=== PATIENT | female | born 1935 | race African-American/Black ===

== ENCOUNTER 2017-12-03 22:35 | Inpatient (IN) | payer MEDICARE, OTHER ==
[~2017-12-03] VITALS: Ht 157.5 cm; Wt 59.9 kg
[~2017-12-03 22:35] MED LIST: ATOR40TA70 PO; CHOL500010 PO; CYPR4TAB43 PO; ESOM40CA PO; FERR-43 PO; GLIP5TAB12 PO; LOSA100T3 PO; METF-416 PO; NATE120T PO; OMEP40CA34 PO; SITA50TA3 PO
[2017-12-03] MEDS ORDERED: SODIUM CHLORIDE 0.9% 1,000 ML IV ONE (23:30)
[2017-12-04] VITALS (9 sets, daily range): BP systolic 98–119; BP diastolic 57–71
[2017-12-04 00:26] LABS: BASOPHILS % 0.5 % (0.0-2.0); EOSINOPHILS % 0.2 % (0.0-5.0); HEMATOCRIT. 35.5 % (36.0-48.0); HEMOGLOBIN. 11.2 g/dL (12.0-16.0); MEAN CORPUSCULAR HEMOGLOBIN 24.9 pg (28.0-32.0); MEAN CORPUSCULAR VOLUME 79.1 fL (81.0-99.0); MEAN PLATELET VOLUME 8.9 fl (7.4-10.4); MONOCYTES % 5.9 % (2.0-8.0); NEUTROPHILS % 82.4 % (40.0-76.0); PLATELET 280 x1000/uL (130-400); RED BLOOD CELL COUNT 4.48 mill/uL (4.2-5.4)
[2017-12-04 00:37] LABS: CHLORIDE 99 mEq/L (98-107)
[2017-12-04 00:46] LABS: PROTHROMBIN TIME 10.1 sec (9.1-11.1)
[2017-12-04] MEDS ORDERED: SODIUM CHLORIDE 0.9% 1,000 ML IV SCH (02:51)
[2017-12-04 03:31] LABS: BASOPHILS % 0.5 % (0.0-2.0); HEMATOCRIT. 26.1 % (36.0-48.0); HEMOGLOBIN. 8.6 g/dL (12.0-16.0); LYMPHOCYTES % 15.8 % (20.0-50.0); MEAN CORPUSCULAR HEMOGLOBIN 25.8 pg (28.0-32.0); MEAN PLATELET VOLUME 8.8 fl (7.4-10.4); MONOCYTES % 5.4 % (2.0-8.0); NEUTROPHILS % 78.3 % (40.0-76.0); PLATELET 241 x1000/uL (130-400); RED BLOOD CELL COUNT 3.35 mill/uL (4.2-5.4); RED CELL DISTRIBUTION WIDTH 15.8 % (11.6-14.6)
[2017-12-04] MEDS ORDERED: IOHEXOL-300 100 ML BOTTLE ONE (03:49)
[2017-12-04] MEDS ORDERED: DEXTROSE 50% WATER 50ML SYRINGE IV PRN (09:00)
[2017-12-04] MEDS ORDERED: MAGNESIUM/ALUMINUM HYDROXIDE/SIMETHICONE 30ML UDC PO PRN (09:15)
[2017-12-04] MEDS ORDERED: GUAIFENESIN 200MG/10ML SUGAR FREE UDC PO PRN (09:15)
[2017-12-04] MEDS ORDERED: HYDROCODONE/ACETAMINOPHEN 5/325MG TABLET PO PRN (09:15)
[2017-12-04] MEDS ORDERED: IPRATROPIUM/ALBUTEROL 0.5-3(2.5)MG/3ML NEB INH PRN (09:15)
[2017-12-04] MEDS ORDERED: DOCUSATE SODIUM 100MG CAPSULE PO PRN (09:15)
[2017-12-04] MEDS ORDERED: ACETAMINOPHEN 325MG TABLET PO PRN (09:15)
[2017-12-04] MEDS ORDERED: ONDANSETRON HCL 4MG/2ML INJ IV PRN (09:15)
[2017-12-04] MEDS ORDERED: NA PHOS,M-B/NA PHOS,DI-BA ENEMA 118ML PR PRN (09:15)
[2017-12-04] MEDS ORDERED: ACETAMINOPHEN 650MG SUPP PR PRN (09:15)
[2017-12-04] MEDS ORDERED: ACETAMINOPHEN 650MG/20.3ML UDC GT PRN (09:15)
[2017-12-04] MEDS: SODIUM CHLORIDE 0.45% 1,000 ML IV SCH (10:09)
[2017-12-04 10:41] LABS: BASOPHILS % 0.5 % (0.0-2.0); EOSINOPHILS % 0.1 % (0.0-5.0); HEMATOCRIT. 28.5 % (36.0-48.0); HEMOGLOBIN. 9.5 g/dL (12.0-16.0); LYMPHOCYTES % 19.9 % (20.0-50.0); MEAN CORPUSCULAR HEMOGLOBIN 26.6 pg (28.0-32.0); MEAN CORPUSCULAR VOLUME 79.9 fL (81.0-99.0); MEAN PLATELET VOLUME 8.7 fl (7.4-10.4); MONOCYTES % 8.3 % (2.0-8.0); NEUTROPHILS % 71.2 % (40.0-76.0); PLATELET 215 x1000/uL (130-400); RED BLOOD CELL COUNT 3.57 mill/uL (4.2-5.4); RED CELL DISTRIBUTION WIDTH 16.1 % (11.6-14.6)
[2017-12-04] MEDS: BLOOD SUGAR DIAGNOSTIC STRIP TEST SCH ×3 (12:40→21:54)
[2017-12-04] MEDS: INSULIN LISPRO 100 UNITS/ML SUBCUT SCH ×3 (13:12→21:52)
[2017-12-04] MEDS: SODIUM CHLORIDE 0.9% INJ 3ML FLUSH IVF SCH ×2 (14:00→21:54)
[2017-12-04 17:40] LABS: TOTAL IRON BINDING CAPACITY 203 ug/dL (250-450)
[2017-12-04 18:16] LABS: FOLIC ACID (FOLATE) SERUM 11.2 ng/mL (>5.38)
[2017-12-05] VITALS (11 sets, daily range): BP systolic 82–144; BP diastolic 55–85
[2017-12-05] MEDS: SODIUM CHLORIDE 0.45% 1,000 ML IV SCH ×2 (02:31→14:01)
[2017-12-05 05:38] LABS: BASOPHILS % 0.6 % (0.0-2.0); EOSINOPHILS % 1.4 % (0.0-5.0); HEMATOCRIT. 26.8 % (36.0-48.0); HEMOGLOBIN. 8.8 g/dL (12.0-16.0); MEAN CORPUSCULAR HEMOGLOBIN 26.3 pg (28.0-32.0); MEAN CORPUSCULAR VOLUME 80.4 fL (81.0-99.0); MEAN PLATELET VOLUME 8.9 fl (7.4-10.4); MONOCYTES % 6.2 % (2.0-8.0); NEUTROPHILS % 67.8 % (40.0-76.0); PLATELET 196 x1000/uL (130-400); RED BLOOD CELL COUNT 3.34 mill/uL (4.2-5.4); RED CELL DISTRIBUTION WIDTH 16.1 % (11.6-14.6)
[2017-12-05 06:51] LABS: CHLORIDE 108 mEq/L (98-107)
[2017-12-05 06:55] LABS: HDL CHOLESTEROL 35 mg/dL (40-59); LDL CHOLESTEROL 60 mg/dL (5-100)
[2017-12-05] MEDS: BLOOD SUGAR DIAGNOSTIC STRIP TEST SCH ×4 (07:30→21:48)
[2017-12-05] MEDS: INSULIN LISPRO 100 UNITS/ML SUBCUT SCH ×4 (09:00→22:19)
[2017-12-05 11:05] LABS: HEMOGLOBIN 8.2 g/dL (12.0-16.0)
[2017-12-05] MEDS: SODIUM CHLORIDE 0.9% INJ 3ML FLUSH IVF SCH ×2 (14:00→21:48)
[2017-12-05 17:22] LABS: HEMATOCRIT 26.5 % (36.0-48.0); HEMOGLOBIN 8.9 g/dL (12.0-16.0)
[2017-12-05] MEDS ORDERED: INSULIN REGULAR (HUMULIN R) 300UNITS/3ML SUBCUT ONE (22:45)
[2017-12-05] MEDS ORDERED: INSULIN LISPRO 100 UNITS/ML SUBCUT NR (23:00)
[2017-12-06] VITALS (20 sets, daily range): BP systolic 89–134; BP diastolic 56–90
[2017-12-06] MEDS ORDERED: DEXTROSE 50% WATER 50ML SYRINGE IV PRN ×2 (00:15)
[2017-12-06] MEDS: SODIUM CHLORIDE 0.45% 1,000 ML IV SCH ×2 (01:27→14:20)
[2017-12-06 06:06] LABS: BASOPHILS % 0.5 % (0.0-2.0); EOSINOPHILS % 3.3 % (0.0-5.0); HEMATOCRIT. 24.9 % (36.0-48.0); HEMOGLOBIN. 8.3 g/dL (12.0-16.0); LYMPHOCYTES % 30.5 % (20.0-50.0); MEAN CORPUSCULAR HEMOGLOBIN 26.6 pg (28.0-32.0); MEAN PLATELET VOLUME 8.7 fl (7.4-10.4); MONOCYTES % 7.6 % (2.0-8.0); NEUTROPHILS % 58.1 % (40.0-76.0); PLATELET 213 x1000/uL (130-400); RED BLOOD CELL COUNT 3.11 mill/uL (4.2-5.4); RED CELL DISTRIBUTION WIDTH 15.6 % (11.6-14.6)
[2017-12-06] MEDS: SODIUM CHLORIDE 0.9% INJ 3ML FLUSH IVF SCH ×3 (06:33→22:01)
[2017-12-06 06:39] LABS: CHLORIDE 110 mEq/L (98-107)
[2017-12-06] MEDS: BLOOD SUGAR DIAGNOSTIC STRIP TEST SCH ×4 (08:20→21:57)
[2017-12-06] MEDS: INSULIN LISPRO 100 UNITS/ML SUBCUT SCH ×4 (09:38→22:34)
[2017-12-06 19:08] LABS: HEMATOCRIT 23.3 % (36.0-48.0); HEMOGLOBIN 7.5 g/dL (12.0-16.0)
[2017-12-07] VITALS (31 sets, daily range): BP systolic 63–148; BP diastolic 41–92
[2017-12-07] MEDS: SODIUM CHLORIDE 0.45% 1,000 ML IV SCH (03:55)
[2017-12-07] MEDS: SODIUM CHLORIDE 0.9% INJ 3ML FLUSH IVF SCH ×3 (05:06→21:55)
[2017-12-07] MEDS: BLOOD SUGAR DIAGNOSTIC STRIP TEST SCH ×4 (08:14→21:55)
[2017-12-07] MEDS: INSULIN LISPRO 100 UNITS/ML SUBCUT SCH ×4 (08:46→21:55)
[2017-12-07 11:29] LABS: BASOPHILS % 0.5 % (0.0-2.0); EOSINOPHILS % 1.7 % (0.0-5.0); HEMATOCRIT. 28.5 % (36.0-48.0); HEMOGLOBIN. 9.4 g/dL (12.0-16.0); LYMPHOCYTES % 20.1 % (20.0-50.0); MEAN CORPUSCULAR HEMOGLOBIN 27.2 pg (28.0-32.0); MEAN CORPUSCULAR VOLUME 82.8 fL (81.0-99.0); MEAN PLATELET VOLUME 8.6 fl (7.4-10.4); MONOCYTES % 8.1 % (2.0-8.0); NEUTROPHILS % 69.6 % (40.0-76.0); PLATELET 185 x1000/uL (130-400); RED BLOOD CELL COUNT 3.44 mill/uL (4.2-5.4); RED CELL DISTRIBUTION WIDTH 16.5 % (11.6-14.6)
[2017-12-07 11:31] LABS: CHLORIDE 109 mEq/L (98-107)
[2017-12-07 11:33] LABS: INR 1.1; PARTIAL THROMBOPLASTIN TIME 24.3 sec (23.4-31.0); PROTHROMBIN TIME 10.7 sec (9.1-11.1)
[2017-12-07] MEDS ORDERED: SODIUM CHLORIDE 0.45% 1,000 ML IV SCH (15:00)
[2017-12-07 17:15] LABS: HEMATOCRIT 27.4 % (36.0-48.0); HEMOGLOBIN 9.2 g/dL (12.0-16.0)
[2017-12-08] VITALS (48 sets, daily range): BP systolic 83–167; BP diastolic 50–86
[2017-12-08 01:09] LABS: HEMOGLOBIN 8.6 g/dL (12.0-16.0)
[2017-12-08 05:52] LABS: BASOPHILS % 0.3 % (0.0-2.0); EOSINOPHILS % 3.1 % (0.0-5.0); HEMATOCRIT. 24.2 % (36.0-48.0); LYMPHOCYTES % 20.3 % (20.0-50.0); MEAN CORPUSCULAR HEMOGLOBIN 27.4 pg (28.0-32.0); MEAN CORPUSCULAR VOLUME 82.5 fL (81.0-99.0); MEAN PLATELET VOLUME 8.5 fl (7.4-10.4); MONOCYTES % 7.9 % (2.0-8.0); NEUTROPHILS % 68.4 % (40.0-76.0); PLATELET 204 x1000/uL (130-400); RED BLOOD CELL COUNT 2.93 mill/uL (4.2-5.4); RED CELL DISTRIBUTION WIDTH 16.1 % (11.6-14.6)
[2017-12-08] MEDS: SODIUM CHLORIDE 0.9% INJ 3ML FLUSH IVF SCH ×3 (06:50→21:08)
[2017-12-08 07:16] LABS: CHLORIDE 114 mEq/L (98-107)
[2017-12-08] MEDS: BLOOD SUGAR DIAGNOSTIC STRIP TEST SCH ×4 (08:12→21:08)
[2017-12-08] MEDS: INSULIN LISPRO 100 UNITS/ML SUBCUT SCH ×4 (08:50→21:12)
[2017-12-08] MEDS: PANTOPRAZOLE SODIUM 40 MG/VIAL IV SCH (10:48)
[2017-12-08] MEDS: SODIUM CHLORIDE 0.9% 1,000 ML IV SCH (10:48)
[2017-12-08 12:36] LABS: HEMATOCRIT 22.7 % (36.0-48.0); HEMOGLOBIN 7.7 g/dL (12.0-16.0)
[2017-12-08 20:31] LABS: HEMATOCRIT 27.4 % (36.0-48.0); HEMOGLOBIN 9.1 g/dL (12.0-16.0)
[2017-12-09] VITALS (52 sets, daily range): BP systolic 98–150; BP diastolic 48–88
[2017-12-09] MEDS: SODIUM CHLORIDE 0.9% 1,000 ML IV SCH ×2 (00:33→15:06)
[2017-12-09] MEDS: SODIUM CHLORIDE 0.9% INJ 3ML FLUSH IVF SCH ×3 (05:06→21:32)
[2017-12-09 06:10] LABS: HEMATOCRIT 26.5 % (36.0-48.0); HEMOGLOBIN 8.8 g/dL (12.0-16.0)
[2017-12-09] MEDS: BLOOD SUGAR DIAGNOSTIC STRIP TEST SCH ×4 (07:50→21:31)
[2017-12-09] MEDS: INSULIN LISPRO 100 UNITS/ML SUBCUT SCH ×4 (08:20→21:00)
[2017-12-09] MEDS: PANTOPRAZOLE SODIUM 40 MG/VIAL IV SCH (10:09)
[2017-12-09 12:58] LABS: HEMATOCRIT 26.1 % (36.0-48.0); HEMOGLOBIN 8.9 g/dL (12.0-16.0)
[2017-12-09 19:04] LABS: HEMATOCRIT 26.2 % (36.0-48.0); HEMOGLOBIN 8.8 g/dL (12.0-16.0)
[2017-12-09] MEDS: LORATADINE 10MG TABLET PO SCH (21:30)
[2017-12-10] VITALS (30 sets, daily range): BP systolic 78–158; BP diastolic 51–112
[2017-12-10 01:06] LABS: HEMATOCRIT 24.2 % (36.0-48.0)
[2017-12-10] MEDS: SODIUM CHLORIDE 0.9% 1,000 ML IV SCH ×3 (05:35→21:44)
[2017-12-10] MEDS: SODIUM CHLORIDE 0.9% INJ 3ML FLUSH IVF SCH ×3 (05:36→21:43)
[2017-12-10 06:34] LABS: BASOPHILS % 0.4 % (0.0-2.0); EOSINOPHILS % 1.6 % (0.0-5.0); HEMATOCRIT. 22.8 % (36.0-48.0); HEMOGLOBIN. 7.6 g/dL (12.0-16.0); LYMPHOCYTES % 25.4 % (20.0-50.0); MEAN CORPUSCULAR VOLUME 83.7 fL (81.0-99.0); MEAN PLATELET VOLUME 8.1 fl (7.4-10.4); MONOCYTES % 9.2 % (2.0-8.0); NEUTROPHILS % 63.4 % (40.0-76.0); PLATELET 212 x1000/uL (130-400); RED BLOOD CELL COUNT 2.73 mill/uL (4.2-5.4); RED CELL DISTRIBUTION WIDTH 14.9 % (11.6-14.6)
[2017-12-10 07:15] LABS: CHLORIDE 114 mEq/L (98-107)
[2017-12-10] MEDS: BLOOD SUGAR DIAGNOSTIC STRIP TEST SCH ×4 (07:28→21:37)
[2017-12-10] MEDS: PANTOPRAZOLE SODIUM 40 MG/VIAL IV SCH (08:08)
[2017-12-10] MEDS: INSULIN LISPRO 100 UNITS/ML SUBCUT SCH ×4 (08:08→21:42)
[2017-12-10] MEDS ORDERED: SORBITOL 70% SOLN 30ML PO SCH (08:30)
[2017-12-10] MEDS ORDERED: SORBITOL 70% SOLN 30ML PO NR (11:00)
[2017-12-10 11:02] LABS: HEMATOCRIT 25.6 % (36.0-48.0); HEMOGLOBIN 8.6 g/dL (12.0-16.0)
[2017-12-10] MEDS ORDERED: SIMETHICONE 40 MG/0.6 ML 30ML ONE (14:44)
[2017-12-10] MEDS ORDERED: SODIUM CHLORIDE 0.9% 10ML VIAL ONE (16:03)
[2017-12-10] MEDS ORDERED: FENTANYL CITRATE/PF 50MCG/ML 2ML VIAL ONE (16:20)
[2017-12-10] MEDS ORDERED: MIDAZOLAM HCL 5 MG/5 ML VIAL IV PRN (16:20)
[2017-12-10] MEDS ORDERED: MIDAZOLAM HCL 5 MG/5 ML VIAL ONE (16:20)
[2017-12-10] MEDS ORDERED: FENTANYL CITRATE/PF 50MCG/ML 2ML VIAL IV PRN (16:21)
[2017-12-10 18:30] LABS: HEMATOCRIT 27.9 % (36.0-48.0); HEMOGLOBIN 8.9 g/dL (12.0-16.0)
[2017-12-11] VITALS (41 sets, daily range): BP systolic 94–154; BP diastolic 53–105
[2017-12-11] MEDS: SODIUM CHLORIDE 0.9% INJ 3ML FLUSH IVF SCH ×3 (05:10→22:15)
[2017-12-11 06:53] LABS: HEMATOCRIT 20.6 % (36.0-48.0)
[2017-12-11 07:41] LABS: RED BLOOD CELL COUNT 2.41 mill/uL (4.2-5.4)
[2017-12-11 07:42] LABS: HEMATOCRIT 20.6 % (36.0-48.0); MEAN CORPUSCULAR VOLUME 85.3 fL (81.0-99.0); PLATELET 231 x1000/uL (130-400); RED CELL DISTRIBUTION WIDTH 15.9 % (11.6-14.6)
[2017-12-11 07:47] LABS: CHLORIDE 119 mEq/L (98-107)
[2017-12-11] MEDS: INSULIN LISPRO 100 UNITS/ML SUBCUT SCH ×4 (08:20→20:44)
[2017-12-11] MEDS: PANTOPRAZOLE SODIUM 40 MG/VIAL IV SCH (08:26)
[2017-12-11] MEDS: BLOOD SUGAR DIAGNOSTIC STRIP TEST SCH ×4 (08:27→21:02)
[2017-12-11 16:17] LABS: HEMATOCRIT 24.3 % (36.0-48.0); HEMOGLOBIN 8.2 g/dL (12.0-16.0)
[2017-12-12] VITALS (15 sets, daily range): BP systolic 90–143; BP diastolic 50–85
[2017-12-12 06:00] LABS: BASOPHILS % 0.6 % (0.0-2.0); HEMATOCRIT. 24.3 % (36.0-48.0); HEMOGLOBIN. 8.4 g/dL (12.0-16.0); LYMPHOCYTES % 26.5 % (20.0-50.0); MEAN CORPUSCULAR HEMOGLOBIN 29.2 pg (28.0-32.0); MEAN CORPUSCULAR VOLUME 84.5 fL (81.0-99.0); MEAN PLATELET VOLUME 7.6 fl (7.4-10.4); MONOCYTES % 7.4 % (2.0-8.0); NEUTROPHILS % 62.5 % (40.0-76.0); PLATELET 258 x1000/uL (130-400); RED BLOOD CELL COUNT 2.87 mill/uL (4.2-5.4); RED CELL DISTRIBUTION WIDTH 15.7 % (11.6-14.6)
[2017-12-12 06:05] LABS: CHLORIDE 114 mEq/L (98-107)
[2017-12-12] MEDS: SODIUM CHLORIDE 0.9% INJ 3ML FLUSH IVF SCH ×3 (06:11→21:13)
[2017-12-12] MEDS: BLOOD SUGAR DIAGNOSTIC STRIP TEST SCH ×4 (08:24→21:08)
[2017-12-12] MEDS: LORATADINE 10MG TABLET PO SCH (08:29)
[2017-12-12] MEDS: PANTOPRAZOLE SODIUM 40 MG/VIAL IV SCH (08:29)
[2017-12-12] MEDS: INSULIN LISPRO 100 UNITS/ML SUBCUT SCH ×4 (08:30→21:12)
[2017-12-12] MEDS: SODIUM CHLORIDE 0.9% 1,000 ML IV SCH (10:00)
[2017-12-13 00:05] VITALS: BP 124/76
[2017-12-13] MEDS: LOSARTAN POTASSIUM 100 MG TABLET PO SCH ×2 (00:08→08:49)
[2017-12-13 04:00] VITALS: BP 120/76
[2017-12-13 06:17] LABS: BASOPHILS % 0.6 % (0.0-2.0); EOSINOPHILS % 3.1 % (0.0-5.0); HEMATOCRIT. 25.3 % (36.0-48.0); HEMOGLOBIN. 8.5 g/dL (12.0-16.0); LYMPHOCYTES % 24.8 % (20.0-50.0); MEAN CORPUSCULAR HEMOGLOBIN 28.9 pg (28.0-32.0); MEAN PLATELET VOLUME 7.5 fl (7.4-10.4); MONOCYTES % 8.3 % (2.0-8.0); NEUTROPHILS % 63.2 % (40.0-76.0); PLATELET 297 x1000/uL (130-400); RED BLOOD CELL COUNT 2.94 mill/uL (4.2-5.4); RED CELL DISTRIBUTION WIDTH 15.4 % (11.6-14.6)
[2017-12-13] MEDS: SODIUM CHLORIDE 0.9% INJ 3ML FLUSH IVF SCH ×2 (06:17→14:00)
[2017-12-13] MEDS: BLOOD SUGAR DIAGNOSTIC STRIP TEST SCH ×3 (06:17→16:45)
[2017-12-13 06:19] LABS: CHLORIDE 112 mEq/L (98-107)
[2017-12-13] MEDS: INSULIN LISPRO 100 UNITS/ML SUBCUT SCH ×3 (06:34→17:15)
[2017-12-13 08:00] VITALS: BP 130/86
[2017-12-13] MEDS: LORATADINE 10MG TABLET PO SCH (08:49)
[2017-12-13] MEDS: PANTOPRAZOLE SODIUM 40 MG/VIAL IV SCH (08:49)
[2017-12-13 12:00] VITALS: BP 126/72
[2017-12-13] MEDS: SODIUM CHLORIDE 0.9% 1,000 ML IV SCH (12:20)
[2017-12-13] MEDS ORDERED: BISACODYL 10MG SUPP PR PRN (15:15)
[2017-12-13] MEDS ORDERED: BISACODYL 5MG TABLET PO PRN (15:15)
[2017-12-13 16:00] VITALS: BP 128/74
[2017-12-13 19:55] VITALS: BP 130/80
== END 2017-12-13 21:07 | disposition home health service (06) | DRG 378 ==
LOC: ER 23:00 → 5EST 12-04 02:52 → EDBEDREQDT 12-04 02:54 → EDBEDREQ 12-04 02:54 → EDBEDREQTM 12-04 02:54 → ENRESERV 12-04 03:13 → EDBEDREQ 12-04 03:53 → EDBEDREQSVC 12-04 03:53 → EDBEDREQTM 12-04 03:53 → ENRESERV 12-04 04:01 → CVICU 12-06 21:30 → 5WST 12-12 15:32
PROVIDERS: ADMIT Internal Medicine Rheumatology; ATTEND Internal Medicine Rheumatology
PROC: 30233N1 Transfusion of Nonautologous Red Blood Cells into Peripheral Vein, Percutaneous Approach (ICD-10-PCS; 2017-12-06)
PROC: 0DBP8ZZ Excision of Rectum, Via Natural or Artificial Opening Endoscopic (ICD-10-PCS; principal; 2017-12-10 16:00)
DX: K57.91 Diverticulosis of intestine, part unspecified, without perforation or abscess with bleeding (principal); E46 Unspecified protein-calorie malnutrition; D62 Acute posthemorrhagic anemia; K55.21 Angiodysplasia of colon with hemorrhage; I50.9 Heart failure, unspecified; I11.0 Hypertensive heart disease with heart failure; E78.5 Hyperlipidemia, unspecified; E11.9 Type 2 diabetes mellitus without complications; D50.9 Iron deficiency anemia, unspecified; D25.9 Leiomyoma of uterus, unspecified; I25.10 Atherosclerotic heart disease of native coronary artery without angina pectoris; K62.1 Rectal polyp; M19.90 Unspecified osteoarthritis, unspecified site; M81.0 Age-related osteoporosis without current pathological fracture; I95.9 Hypotension, unspecified; H26.9 Unspecified cataract; M50.30 Other cervical disc degeneration, unspecified cervical region; M51.36 Other intervertebral disc degeneration, lumbar region; M75.91 Shoulder lesion, unspecified, right shoulder; Z79.84 Long term (current) use of oral hypoglycemic drugs; Z79.899 Other long term (current) drug therapy; Z68.24 Body mass index [BMI] 24.0-24.9, adult
CPT/HCPCS: 36415; 71045; 74177; 78278; 80048; 80061; 82607; 82728; 82746; 82962; 83540; 83550; 83605; 85014; 85018; 85027; 86850; 86900; 86920; 88305; 93005; 96360; 96361; 99285; A4216; A6261; A9560; C9113; J1815; J2250; J3010; J7030; J7040; J7050; P9016; Q9967